=== PATIENT | female | born 1940 | race Two or more races ===

== ENCOUNTER 2016-11-04 09:14 | Emergency (ER) | payer OTHER ==
[~2016-11-04] VITALS: Ht 157.5 cm; Wt 72.6 kg
[2016-11-04 09:27] VITALS: BP 122/42
[2016-11-04] MEDS ORDERED: KETOROLAC TROMETH 60MG/2ML VIAL IM ONE (10:45)
== END 2016-11-04 11:13 | disposition home or self-care (01) ==
LOC: ER 09:16
DX: R51 Headache (principal); M46.92 Unspecified inflammatory spondylopathy, cervical region; R42 Dizziness and giddiness; R53.1 Weakness; E11.22 Type 2 diabetes mellitus with diabetic chronic kidney disease; N18.9 Chronic kidney disease, unspecified; I12.9 Hypertensive chronic kidney disease with stage 1 through stage 4 chronic kidney disease, or unspecified chronic kidney disease; E07.9 Disorder of thyroid, unspecified; Z86.73 Personal history of transient ischemic attack (TIA), and cerebral infarction without residual deficits
CPT/HCPCS: 70450; 72040; 96372; 99284; J1885